=== PATIENT | male | born 1960 | race Caucasian/White ===

== ENCOUNTER 2024-01-18 10:07 | Outpatient (CLI) | payer OTHER ==
--- NOTE | 2024-01-18 11:24 | Sleep Patient Instructions ---
Sleep Center Visit Summary - Patient Visit Information Reason for Visit: Initial consult for evaluation of sleep disordered breathing and other sleep issues. - Patient Instructions Instructions Attached: Sleep Study Additional Instructions: You will be completing a sleep study, either an in-lab polysomnography (PSG) or home sleep study (HST). You will follow-up in the sleep care office after the sleep study is completed to hear the results and talk about therapy, if needed. You will be called by our office staff to schedule this appointment, but you may contact us with any questions. - Clinic Information Contact: [facility] [address] [place] [address] [email or web address] T: [phone]
--- NOTE | 2024-01-18 11:31 | SLEEP CARE CONSULTATION ---
Information from patient questionnaire entered by Cali Poole. I have reviewed and concur with the information entered by Cali Poole. This document represents the service I personally performed and the decisions made by me, Philly Gray ARNP. History of Present Illness Service Date and Time: 01/18/2024 1007 Reason for Visit: New patient Chief Complaint: reports: Unrefreshed sleep, Snoring, Excessive daytime sleepiness, Fatigue, Frequent awakenings at night Date of Onset: 5 years Usual bedtime: 8 PM Time it takes to fall asleep: 1 minute Snores at night: Yes Observed to quit breathing while asleep: No Sleeps alone due to snoring: Yes Number of times waking at night: 1 - 3 get out of bed; more awakenings up to 10 for just moving positions Reasons for waking at night: reports: Pain, Bathroom, Other (Unknown reason). denies: Choking, Snoring, Gasping for air Toss, Turn, or Twitch while sleeping: Yes Recalls having dreams: Yes (sometimes) Usually gets out of bed at: 4 AM; [id number] Feels refreshed in the morning: No Morning headache: No Sleepy or fatigued during the day: Yes (no unintentional naps) Ever fallen asleep while driving: No Takes day naps: Yes (Rarely) Dreams during day naps: No Prior sleep studies: No Additional HPI information: I had the pleasure of seeing HEMANTH CAMPBELL today regarding the possibility of him having a sleep disorder. His current complaints are excessive daytime sleepiness, fatigue, frequent night awakenings, snoring and unrefreshed sleep. His has mentioned that he snores. He is a restless sleeper. He will sometimes wake up at night and not go back to sleep for hours. He wakes up feeing tired and is fatigued during the day. He has sinus issues and has had sinus surgery. He snores more when he is on his back. His mother has sleep apnea and is on a CPAP machine. 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 Patient is and lives in [place]. Have you smoked in the past 12 months: No Cigarettes per day (20/pack): 20 Years of smokin Quit date: 1982 Smoking Pack Years: 2.0 Alcohol use: Yes Alcohol amount and frequency: 1 12 oz beer, 2-4 times per week at dinner Caffeine use: Yes Caffeine amount and frequency: 12 oz coffee every morning at breakfast Family History Family history of sleep disordered breathing: Yes Family Hx Sleep Apnea: Mother: Sleep apnea - Treated, Father: Snoring Allergies and Home Medications Known drug allergies: No Drug allergies reviewed: Yes Home medication list reviewed: Yes (as listed) Allergy and home medication list: Allergies No Known Drug Allergies Allergy (Verified 01/18/24 11:18) Home Medications Alfuzosin HCl See Rx Instructions .ROUTE .COMPLEX 01/18/24 [History] Azelastine HCl See Rx Instructions .ROUTE .COMPLEX 01/18/24 [History] Finasteride 5 mg ORAL DAILY 01/18/24 [History] Fluticasone See Rx Instructions .ROUTE .COMPLEX 01/18/24 [History] Sildenafil See Rx Instructions .ROUTE .COMPLEX 01/18/24 [History] Iron 65 mg 3 times per week Multivitamin Krill oil 1000 mg daily Creatine 3 gms 5 times per week Review of Systems Weight gain over past 5 years: 3 - 4 lbs Cardiovascular: denies: high blood pressure Gastrointestinal: denies: heartburn Urinary: reports: frequency, urgency Neurological: denies: headaches, head trauma Psychiatric: denies: anxiety, depression Ear/Nose/Throat: reports: nasal congestion, wisdom teeth removed, other (sinus surgery x 2). denies: injury to nose Endocrine: reports: thyroid disease (1/2 thyroid removed because of cancer), history of goiter Musculoskeletal: reports: muscle pain or cramping (Muscle pain) Immunologic: reports: allergies to food or environment (seasonal, pollens, dustmites) Physical Exam Vital signs obtained and entered by: Philly Kramer NP Blood Pressure: 117/68 Cuff size: regular (left arm) Heart Rate: 56 O2 Saturation: 98 Height: 5 ft 9 in Weight: 206 lb 3.2 oz Body Mass Index: 30.4 BMI Classification: Obese Neck circumference: 16.25 (inches) Mouth and throat: narrow oropharynx Soft palate: long Hard palate: normal Uvula: normal Uvula visualization: 25% Mallampati Class III Tongue: enlarged in size with teeth garcia on lateral edges Tonsils: absent bilaterally Neck: normal w/o lymphadenopathy or thyromegaly Heart: regular rate and rhythm Lungs: clear bilaterally Impression and Plan 1. Suspected Obstructive Sleep Apnea-Hypopnea Syndrome, as suggested by a history of loud and irregular snoring, frequent awakening during the night, unrefreshed sleep, and excessive daytime sleepiness. Narrow oropharynx and obesity are common predisposing factors for obstructive sleep apnea-hypopnea syndrome. I recommend proceeding to polysomnography to confirm the diagnosis and to assess severity. If the patient has significant sleep disordered breathing, a manual CPAP titration study will also be performed to find the optimal treatment pressure. I informed the patient of what the sleep studies involve and after some discussion, obtained agreement to proceed. The pathophysiology of obstructive sleep apnea-hypopnea syndrome was discussed with the patient and health risks of cardiovascular and cerebrovascular disease if not treated. Risks of drowsy driving discussed in detail and patient advised to avoid long distance driving and to seedling puller at the first sign of drowsiness. Patient agreed to plan. * Schedule polysomnography * Avoid long distance driving or driving when feeling sleepy. * Avoid alcohol, sedative and muscle relaxant around bedtime. * Attempt to lose weight. * Review instructions provided by trained office staff on how to prepare for the sleep study. * Return for follow-up after sleep study completed. Counseling Topics: Weight loss health impact Follow up with Sleep Care in: other (after sleep study) Plan: PSG/HST Visit Type: In Office Time Spent with Patient (minutes): 30 Provider Statement: I spent 100% of the Face to Face Visit with the patient with greater than 50% spent counseling the patient and coordination of care.
[2024-01-18 11:40] VITALS: BP 117/68; O2SAT 98
== END 2024-01-18 10:08 | disposition home or self-care (01) ==
LOC: SC 10:07
PROVIDERS: ATTEND Nurse Practitioner Family
DX: R06.83 Snoring (principal); G47.8 Other sleep disorders; G47.10 Hypersomnia, unspecified; F17.200 Nicotine dependence, unspecified, uncomplicated; E66.9 Obesity, unspecified; Z68.30 Body mass index [BMI] 30.0-30.9, adult
CPT/HCPCS: 99203; 99212

== ENCOUNTER 2024-02-18 19:24 | Outpatient (CLI) | payer OTHER | END 2024-02-18 19:25 | disposition home or self-care (01) | LOC: SC 19:24 | PROVIDERS: ATTEND Nurse Practitioner Family | DX: G47.61 Periodic limb movement disorder (principal); R09.02 Hypoxemia | CPT/HCPCS: 95810 ==

== ENCOUNTER 2024-03-15 13:24 | Outpatient (CLI) | payer OTHER ==
--- NOTE | 2024-03-15 13:58 | Sleep Patient Instructions ---
Sleep Center Visit Summary - Patient Visit Information Reason for Visit: Sleep study follow-up - Patient Instructions Additional Instructions: Your sleep study today was negative for significant sleep disordered breathing. However, you did have elevated respiratory episodes when sleeping on your back. You should avoid sleeping on your back to control these respiratory episodes. You were found to have episodes of snoring. There are different ways to control snoring including weight loss, oral devices made by a dentist or surgical options through ENT specialist. You should not use oral devices that do not fit properly because they can affect your bite. You should also check insurance coverage of oral devices for snoring because they may not be cover well. You may obtain a referral to an ENT specialist through your primary provider. You have mild hypoxemia and should follow up with primary provider for further evaluation and treatment as needed. Follow-up in sleep care as needed. - Clinic Information Contact: [facility] [address] [place] [address] [email or web address] T: [phone]
--- NOTE | 2024-03-15 14:03 | SLEEP CARE CONSULTATION ---
Information from patient questionnaire entered by Chantelle Zeng. I have reviewed and concur with the information entered by Chantelle Zeng. This document represents the service I personally performed and the decisions made by , Philly Gray ARNP. History of Present Illness Service Date and Time: 03/15/2024 1324 Initial [place] Sleepiness Scale score: 13 (in 2023) Current [place] Sleepiness Scale score: 15 (03/15/24) Additional HPI information: HEMANTH CAMPBELL returns for follow up and results of the recently performed polysomnography. The patient was informed of the following findings: No significant sleep disordered breathing with an average AHI of 3.7 and jillian oxygen saturation of 84%. He had supine AHI of 7.2 and mild PLMs not contributing to sleep fragmentation. I explained the pathophysiology behind obstructive sleep apnea. Patient does not have sleep apnea and was advised how weight gain could increase the risk of developing sleep apnea in the future. I strongly encouraged the patient to lose weight. Patient does not have significant sleep disordered breathing but has elevated AHI in supine position so advised positional therapy. Methods to achieve positional management therapy were discussed; such as, positioning with pillows, wearing a T-shirt with tennis balls sewn into the back or commercially available products. Patient has light snoring. Snoring can be reduced by weight loss. Weight loss is best achieved with diet consult. Patient instructed to contact PCP for referral. Snoring can also be treated with an oral appliance from a dentist. Advised to check insurance coverage. In addition, an ENT evaluation can be do to see if other treatment is indicated. Patient counseled not drink alcohol less than 4 hours before bedtime as it can increase snoring and apnea. Patient was cautioned about risks of drowsy driving until sleepiness symptoms resolve. Patient denies drowsy driving. Sleep Study - Results Type of Sleep Study: Polysomnography (COMPLETED 02/18/24) Prior sleep studies: No Polysomnography/Home Sleep Study results: IMPRESSION: The quality of the study is good. The patient had normal sleep efficiency. The sleep architecture was relatively normal as well considering the first night effect. Respiratory monitoring showed no significant sleep disordered breathing (AHI = 3.7). There was mild hypoxia (jillian oxygen saturation of 84% and 5.9 minutes spent with oxygen saturation at or below 88%). The respiratory events occurred almost exclusively during supine sleep (supine AHI = 7.2; non-supine = 0.33). Snore was infrequent and light to moderate in intensity. There was mild periodic leg movement of sleep not associated with sleep fragmentation. Cardiac rhythm was normal sinus rhythm without significant arrhythmia. No abnormal behavior (parasomnia) observed during the night. CONCLUSIONS and RECOMMENDATIONS: 1 The patient has no significant obstructive sleep apnea-hypopnea. However, because the supine AHI was elevated at 7.2, the patient should avoid sleeping supine. 2. Periodic leg movement (ICD G47.61), mild, treatment may be indicated. Clinical correlation advised. 3. Hypoxemia ICD R09.02, mild, due to occasional low baseline oxygen saturation. Further evaluation of hypoxemia is recommended. This study may be used to qualify the patient for home oxygen therapy at night because the total cumulative time with oxygen saturation at or below 88% is > 5 minutes. Allergies and Home Medications Known drug allergies: No Drug allergies reviewed: Yes Home medication list reviewed: Yes (no changes) Allergy and home medication list: Allergies No Known Drug Allergies Allergy (Verified 03/13/24 09:13) Review of Systems Review of systems same as previous: Yes (NO CHANGE) Physical Exam Vital signs obtained and entered by: CHANTELLE Gr MA Blood Pressure: 113/67 (LEFT ARM) Cuff size: regular Heart Rate: 78 O2 Saturation: 95 Height: 5 ft 9 in Weight: 201 lb 3.2 oz Body Mass Index: 29.7 BMI Classification: Overweight Impression and Plan 1. Hypoxemia, mild, with a jillian oxygen saturation of 84% and 5.9 minutes spent under 90%. The baseline oxygen saturation was normal with an average oxygen saturation of 92%. Because his baseline was occasionally low during the night of study further evaluation of hypoxemia is recommended. He should return to primary provider for further evaluation as needed. 2. Snoring but no significant sleep disordered breathing. However, he has elevated supine AHI and should avoid sleeping supine to reduce apneas when on his back. Patient advised that often weight loss will reduce snoring as well as apnea risk. An oral appliance can also be used for snoring. This would require a dental consultation. Patient cautioned not to use other online appliances as can cause bite issues. Patient is advised to check if insurance will cover. An ENT consult can also be helpful to determine if any other treatment is an option. 3. Periodic limb movement, mild, that did not fragment patients sleep. Periodic limb movement of sleep (PLMS) is characterized by episodes of repetitive limb movements that occur during sleep and usually involve the lower limbs. The etiology is unknown. Sleep hygiene methods can also improve sleep as well as lifestyle changes such as regular exercise. Patient was advised that no treatment is needed at this time. If symptoms increase, then further evaluation is indicated. 4. Overweight, unspecified. Currently patients BMI is 29.7. Obesity increases the risk of apnea, CPAP pressure requirements and overall health risks especially cardiovascular and diabetes. Thus patient is advised to lose weight. * Follow up with primary for further evaluation of mild hypoxemia * Avoid sleeping supine * Attempt to lose weight * Avoid alcohol consumption near bedtime * The patient is cautioned about driving until sleepiness is completely resolved. * Return as needed for follow up. Counseling Topics: Weight loss health impact Follow up with Sleep Care in: as needed Visit Type: In Office Time Spent with Patient (minutes): 23 Provider Statement: I spent 100% of the Face to Face Visit with the patient with greater than 50% spent counseling the patient and coordination of care.
[2024-03-15 14:07] VITALS: BP 113/67; O2SAT 95
== END 2024-03-15 13:25 | disposition home or self-care (01) ==
LOC: SC 13:24
PROVIDERS: ATTEND Nurse Practitioner Family
DX: R06.83 Snoring (principal); R09.02 Hypoxemia; G47.61 Periodic limb movement disorder; E66.3 Overweight; Z68.29 Body mass index [BMI] 29.0-29.9, adult
CPT/HCPCS: 99212; 99213